=== PATIENT | male | born 1990 | race Caucasian/White ===

== ENCOUNTER 2016-11-27 02:14 | Emergency (ER) | payer MEDICAID ==
[~2016-11-27] VITALS: Ht 185.4 cm; Wt 79.5 kg
[2016-11-27 02:19] VITALS: BP 142/75; PULSE 85; RESP 16; O2SAT 97
--- NOTE | 2016-11-27 02:31 | ED.REPORT ---
HPI-Rash / Abscess Date of Service Nov 27, 2016 ED Provider: Alli Miner MD The pt is a 26 y/o male with a history of IV heroin and meth use who presents to the ED complaining of an area of inflammation on his left forearm. He also complains of anxiety from trying to quit meth. The pt is a methamphetamine user who recently started on heroin, most recently using it 12 hours ago. Patient reports that he thinks that he missed his vein while shooting. He states that he wants to get off meth and heroin. Nursing Notes Stated Complaint: Abscess Chief Complaint: Skin Rash/Abscess Nursing Notes Reviewed: Yes Allergies: Coded Allergies: No Known Allergies (Unverified , 11/27/16) Scheduled Buprenorphine/Naloxone 8-2 mg (Buprenorphine/Naloxone 8-2 mg) 1 Each Tab.subl 1 TABLET SL DAILY Scheduled PRN Hydroxyzine Pamoate (HydrOXYzine Pamoate) 25 Mg Capsule 25 MG PO TID PRN PRN For Itching General Time Seen by MD: 02:38 Chief Complaint Red area Hx Obtained From: Patient Arrived By: Walk-in Onset Occurred: Yesterday Symptom Duration: Since onset Location: : Forearm Quality: Painful Recent Healthcare: No recent doctor visit, No recent hospitalization Similar Sx Previous: No Past Medical History Past Medical History none reported Past Surgical History none reported Smoking History Unknown if Ever Smoker Social History Alcohol Use: Denies alcohol use Drug Use: IV drugs, Meth Ambulatory Status Independent Review of Systems Skin: Reports Itching, Reports Rash Complete sys rev & neg: except as marked. Psychiatric: Reports: Anxiety Physical Exam Initial Vital Signs Vital Signs (First) Date Time Temp Pulse Resp B/P Pulse Ox O2 Delivery O2 Flow Rate FiO2 11/27/16 02:19 36.6 85 16 142/75 97 Room Air Initial VS: Reviewed, Vital signs normal General/Constitutional: Awake, Alert patient is tweaking Skin: Atraumatic, Color NL, Warm, Dry Rash / Lesion Notes: Multiple areas of mild inflamation, hot spots, from injecting Rash / Lesion Location: Positive: Forearm L Abscess Notes: no dominant cellulitis or abscess. Head / Eyes: Atraumatic, Normocephalic Respiratory / Chest: Atraumatic, Breath sounds NL, Breath sounds = bilat, No respiratory distress Cardiovascular: Heart rate NL, Regular rhythm, Heart sounds NL Neurologic: Oriented X3, Speech NL Neck: Atraumatic, Supple Re-Eval/Medical Decision Med Decision/Clinical Course 26-year-old male with long-term parenteral heroin use. He was concerned about several injection sites but none of these meet criteria for definitive abscess or cellulitis. He has been on Suboxone with some success in the past but is really convinced that he wants to be "completely clean and sober" and not just "substituting another drug". We spent considerable time discussing the evidence for use of Suboxone, and how it is different than other drugs because it is a partial opiate agonists. He was given hydroxyzine for agitation and restlessness associated with mild withdrawal and his methamphetamine use. He was given a prescription for Suboxone (buprenorphine/naloxone 8/2 tabs, one sublingual daily, #5 prescribed. He was given the priority access appointment line for [facility] to get the next available appointment for MAT. He seems motivated to go this route. He did make the comment that "obviously, what I am doing is not working". Source of Hx: Old records Re-Evaluation/Progress #1: Time of Eval: 02:52 Re-Evaluation/Progress Note: Discussed with pt the plan for medication to alleviate withdraw symptoms. The pt is willing to receive only 1 dose of Suboxone, and hydroxyzine. Re-Evaluation/Progress #2: Time of Eval: 03:03 Re-Evaluation/Progress Note: Pt changed his mind and is willing to take a complete prescription for Suboxone and the phone number for [facility]. Informed pt of diagnosis and a plan for discharge. The pt understands and agrees with plan for discharge. F/U instructions given. All questions addressed at this time. Counseled Regarding: Diagnosis, Need for follow-up, When/why to return to ED Discharge & Departure Impression: Primary Impression: Opioid use disorder, moderate, dependence Disposition: Home Discharge Condition All VS Reviewed: Yes Condition: Stable Patient Instructions: Buprenorphine/Naloxone (Into the mouth) Additional Instructions: Suboxone (buprenorphine/naloxone) is the best way for you to deal with your opioid use disorder. It IS repeated substitution, trading one drug for another. But in this case, it makes a lot of sense because Suboxone does do good things that we wanted to do without doing the bad things. It stabilizes your life while your body works to heal the problem of too many receptors. You are much less likely to and much more likely to be sober at the end of 2 years if you use Suboxone in a program. Recommend hydroxyzine 25 mg up to 3 times a day as needed for anxiety and restlessness, #20 prescribed. He was given the first dose here in the emergency room. Recommend Suboxone 8/2, 8 mg daily, #5 prescribed, to be started 24 hours after her last opiate use. Call the primary access appointment line for [facility] at [phone] as soon as you get through for the next available intake appointment. Call me at [phone] between the hours of 9 PM and 6 AM for the next few nights if you have any concerns or questions. I will not be here Tuesday. Referrals: Milton Lopez MD (Family) Scribe Attestation Portion of this note were transcribed by Brayan Samano and Radha Chaparro. I, Dr. Alli Miner personally performed the history, physical exam and medical decision-making; I reviewed and confirmed the accuracy of the information in the transcribed note. Signed by: Brayan Samano and Radha Chaparro, Danny, 11/26/16. Alli Miner MD Nov 27, 2016 02:31 Brayan Samano Nov 27, 2016 03:09 Pauline Chaparro Nov 27, 2016 04:11
[2016-11-27] MEDS ORDERED: HYDR-3797 PO (03:30)
[2016-11-27] MEDS ORDERED: BUPR1TAB36 SL (03:30)
[2016-11-27 03:54] VITALS: BP 118/72; PULSE 94; RESP 18; O2SAT 99
== END 2016-11-27 03:55 | disposition home or self-care (01) ==
LOC: SED 02:14
DX: F11.29 Opioid dependence with unspecified opioid-induced disorder (principal)
CPT/HCPCS: 99283; Q0177